=== PATIENT | female | born 1990 | race Caucasian/White ===

== ENCOUNTER 2017-01-12 12:42 | Emergency (ER) | payer OTHER ==
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
== END 2017-01-12 14:12 | disposition home or self-care (01) ==
LOC: ER 12:42
DX: S76.011A Strain of muscle, fascia and tendon of right hip, initial encounter (principal); S50.11XA Contusion of right forearm, initial encounter; G43.909 Migraine, unspecified, not intractable, without status migrainosus; Z79.899 Other long term (current) drug therapy; W28.XXXA Contact with powered lawn mower, initial encounter; Y92.009 Unspecified place in unspecified non-institutional (private) residence as the place of occurrence of the external cause